=== PATIENT | female | born 1980 | race Caucasian/White ===

== ENCOUNTER 2020-12-28 14:19 | Emergency (ER) | payer BC ==
[~2020-12-28] VITALS: Ht 175.3 cm; Wt 65.5 kg
--- NOTE | 2020-12-28 15:29 | NUR ---
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
--- NOTE | 2020-12-28 15:37 | NUR ---
PT IN GOWN IN [facility]; AWAITING ERP.
[2020-12-28] MEDS ORDERED: SODIUM CHLORIDE FLUSH 10ML SYR IVF ONE (16:00)
[2020-12-28] MEDS ORDERED: FAMOTIDINE 20 MG/2 ML IVPush ONE (16:00)
[2020-12-28] MEDS ORDERED: ONDANSETRON 2MG/ML, 2ML IVPush ONE (16:00)
[2020-12-28] MEDS ORDERED: SODIUM CHLORIDE 0.9% 1,000ML IVBOLUS ONE (16:00)
[2020-12-28 16:21] LABS: BASOPHILS % (AUTO) 1 % (0-1); EOSINOPHILS % (AUTO) 1 % (1-7); LYMPHOCYTES % (AUTO) 33 % (22-44); MEAN CORPUSCULAR HEMOGLOBIN 31.9 pg (27.0-34.8); MEAN CORPUSCULAR HGB CONC 33.9 g/dL (32.4-35.8); MEAN PLATELET VOLUME 7.7 fL (7.4-10.4); MONOCYTES % (AUTO) 8 % (2-9); NEUTROPHILS % (AUTO) 57 % (42-75); PLATELET COUNT 209 x10^3/uL (130-400); RED BLOOD COUNT 4.16 x10^6/uL (3.82-5.3); RED CELL DISTRIBUTION WIDTH 12.9 % (9.6-15.2)
[2020-12-28] MEDS ORDERED: FAMOTIDINE 20 MG/2 ML ONE (16:22)
[2020-12-28] MEDS ORDERED: ONDANSETRON 2MG/ML, 2ML ONE (16:22)
[2020-12-28 16:31] LABS: ALANINE AMINOTRANSFERASE 26 U/L (12-78); ALBUMIN 3.3 g/dL (3.4-5.0); ANION GAP 12 mmol/L (5-15); CALCIUM 8.8 mg/dL (8.5-10.1); CHLORIDE 103 mmol/L (98-107); CREATININE 0.85 mg/dL (0.55-1.02)
[2020-12-28 16:36] LABS: ALKALINE PHOSPHATASE 48 U/L (45-117); BILIRUBIN,TOTAL 0.5 mg/dL (0.2-1.0); TOTAL PROTEIN 7.2 g/dL (6.4-8.2)
--- NOTE | 2020-12-28 16:52 | NUR ---
PT MEDICATED PER MAR.
--- NOTE | 2020-12-28 17:11 | NUR ---
PT RESTING COMFORTABLY IN GURNEY WITH NADN. PT HAS CALL LIGHT WITHIN REACH. PT DENIES ANY NEEDS AT THIS TIME.
[2020-12-28 17:25] LABS: MICROSCOPIC AUTO
--- NOTE | 2020-12-28 19:02 | NUR ---
REPORT RECIVED FROM CHUY PRITCHETT
--- NOTE | 2020-12-28 19:08 | NUR ---
REPORT OF PT TO CHUY PANCHAL. ALL QUESTIONS ANSWERED.
--- NOTE | 2020-12-28 19:11 | NUR ---
PT MEDICATED PER JUL. PT ATTACHED TO ALL VS AND CARDIAC MONITORS.
--- NOTE | 2020-12-28 19:56 | NUR ---
PT ABLE TO DRINK WATER AND EAT CRACKERS WITH NO ISSUES. PT STATES FEELING MUCH BETTER
[2020-12-28 20:05] VITALS: BP 144/91
== END 2020-12-28 20:19 | disposition home or self-care (01) ==
LOC: ED 14:49
DX: K52.9 Noninfective gastroenteritis and colitis, unspecified (principal); R11.2 Nausea with vomiting, unspecified
CPT/HCPCS: 36415; 80053; 81001; 83690; 84703; 85025; 87086; 96361; 96374; 96375; 99285; J2405; J7030